=== PATIENT | male | born 1960 | race Caucasian/White ===

== ENCOUNTER → 2019-05-23 | Outpatient (CLI) | payer BC ==
[~2019-05-23] MED LIST: AMBIEN; AMLODIPINE BESY10 MG PO; ASPIRIN325 MG PO; ATORVASTATIN CA20 MG PO; CATAPRES-TTS 21 EACH PO; LISINOPRIL10 MG PO; METOPROLOL TART25 MG PO; MULTIPLE VITAM1 EAC1 PO; PLAVIX75 MG PO; PROCARDIA; [UNRECOGNIZED DRUG - OTHER] PO
--- NOTE | 2019-05-23 10:45 | Diagnostic Imaging Report ---
EXAMINATION: THORACIC SPINE 2VW INDICATION: Back pain COMPARISON: None FINDINGS: AP and lateral images of the thoracic spine demonstrate no acute osseous injury. Vertebral body heights are well-maintained. Alignment appears anatomic. Mild multilevel degenerative changes. Reversal of normal cervical lordosis of the partially visualized lower cervical spine. Moderate lower cervical spine degenerative changes with anterior osteophyte formation and disc space narrowing. The partially visualized lungs are clear. Surgical clips and sutures overlie the stomach. IMPRESSION: No acute osseous injury. Mild multilevel degenerative changes of the thoracic spine. Moderate degenerative changes of the lower cervical spine. Signed by: Mesfin Pierre MD on 05/23/2019 10:42 AM
== END ==
LOC: RAD 08:39
PROVIDERS: ATTEND Family Medicine
DX: M54.6 Pain in thoracic spine (principal)
CPT/HCPCS: 72070

== ENCOUNTER → 2019-06-03 | Outpatient (CLI) | payer BC ==
[~2019-06-03] MED LIST changes: +IOPAMIDOL 610MG/1ML 300 MG/ML VIAL IV ONE
--- NOTE | 2019-06-03 14:14 | Diagnostic Imaging Report ---
Examination: MRI SPINE THORACIC WO CONTRAST History: Ongoing back pain after seizure. Comparison studies: Thoracic spine x-ray performed May 23, 2019. Technique: Sagittal T1 and STIR; axial, sagittal and coronal T2 Intravenous contrast: None. Findings: Alignment: Normal kyphosis. No scoliosis. Thoracic cord: Normal in signal and morphology. The tip of the conus is at L1. Soft tissues: No T2 hyperintense inflammatory changes. Paraspinal muscles: Preserved. No volume loss. Vertebrae: No compression fractures, infection or neoplasm. T4-T7 with subtle increased STIR signal along the superior endplate with mild height loss of the T4 and T5 vertebrae of less than 20%. No canal compromise. Degenerative changes: T8-T9 and T9-T10: Small left central disc protrusion without canal or foraminal stenosis. IMPRESSION: Acute fractures of the superior endplates of T4-T7 with mild height loss of T4 and T5 (less than 20%). Mild degenerative change at T8-T9 and T9-T10 without canal or foraminal stenosis. Signed by: Dr. Rina Velez M.D. on 06/03/2019 2:12 PM
--- NOTE | 2019-06-03 15:03 | Diagnostic Imaging Report ---
Examination: MRI SPINE CERVICAL WO CONTRAST History: Neck pain with radiation to the shoulder. Comparison studies: None Technique: Sagittal T1, T2 and IR, axial T2 and axial gradient echo intravenous contrast: None Findings: Alignment: Focal reversal of normal cervical lordosis centered at C6. No scoliosis. Cervicomedullary junction: No abnormalities. Patent foramen magnum. Soft tissues: No T2 hyperintense inflammatory changes. Spinal cord: Normal in size and signal from the foramen magnum through T1. Vertebrae: No fractures, infection or neoplasm. Degenerative changes: C1-C2: No abnormalities. C2-C3: Central disc protrusion. Mild bilateral uncovertebral and facet arthropathy result in moderate left neural foraminal narrowing. No right foraminal or canal stenosis. C3-C4: Diffuse disc osteophyte complex and bilateral uncovertebral arthropathy result in moderate right and mild left neural foraminal narrowing. No canal stenosis. C4-C5: Asymmetric to the right disc osteophyte complex, ligamentum flavum thickening and bilateral uncovertebral and facet arthropathy result in severe right and moderate left neural foraminal narrowing and moderate canal stenosis. C5-C6: Asymmetric to the left disc osteophyte complex and bilateral uncovertebral and facet arthropathy result in moderate right and severe left neural foraminal narrowing and mild canal stenosis. C6-C7: Diffuse disc osteophyte complex and bilateral uncovertebral arthropathy result in moderate bilateral neural foraminal narrowing and mild canal stenosis. C7-T1: No abnormalities. IMPRESSION: 1. Degenerative changes from C2-C3 through C6-C7 with moderate canal stenosis at C4-C5 and mild canal stenosis at C5-C6 and C6-C7. 2. Severe right neural foraminal narrowing at C4-C5 and severe left foraminal narrowing at C5-C6. Signed by: Dr. Rina Velez M.D. on 06/03/2019 3:01 PM
== END ==
LOC: MRI 09:16
PROVIDERS: ATTEND Family Medicine
DX: M54.12 Radiculopathy, cervical region (principal); M54.6 Pain in thoracic spine
CPT/HCPCS: 72141; 72146

== ENCOUNTER → 2020-08-22 | Outpatient (CLI) | payer OTHER ==
[~2020-08-22] MED LIST changes: -IOPAMIDOL 610MG/1ML 300 MG/ML VIAL IV ONE
== END ==
LOC: NM 07:01
PROVIDERS: ATTEND Family Medicine
DX: D13.7 Benign neoplasm of endocrine pancreas (principal)
CPT/HCPCS: 78803; 78804